=== PATIENT | male | born 1965 ===

== ENCOUNTER 2021-03-28 01:36 | Emergency (ER) | payer OTHER ==
[~2021-03-28] VITALS: Ht 172.7 cm; Wt 104.3 kg
[2021-03-28] MEDS ORDERED: AMOXICILLIN/CLAVULANATE K 875 MG TAB ONE (03:13)
[2021-03-28] MEDS ORDERED: PREDNISONE 20 MG TAB ONE (03:13)
[2021-03-28] MEDS ORDERED: CEFDINIR300 MG PO (03:40)
[2021-03-28] MEDS ORDERED: PREDNISONE50 MG PO (03:41)
[2021-03-28] MEDS ORDERED: VENTOLIN HFA18 GM INH (03:42)
[2021-03-28] MEDS ORDERED: MUCINEX600 MG PO (03:44)
== END 2021-03-28 04:45 | disposition home or self-care (01) ==
LOC: FSED 03:22
DX: R06.02 Shortness of breath (principal); R05 Cough; J20.9 Acute bronchitis, unspecified
CPT/HCPCS: 71046; 80053; 82553; 84484; 85025; 85379; 93005; 99284; J7512